=== PATIENT | female | born 1980 | race Caucasian/White ===

== ENCOUNTER 2025-02-03 07:39 | Day surgery (SDC) | payer OTHER ==
[~2025-02-03] VITALS: Ht 170.2 cm; Wt 91.1 kg
[~2025-02-03 07:39] MED LIST: ALBU8.5H; ATOG30TA PO; BUDE10.7; BUTACAP78 PO; SYNT50TA PO; TOPA50TA8 PO; VITA100093 PO
[2025-02-03] MEDS ORDERED: propofoL 200 MG/20 ML VIAL As Ordered ONE (09:28)
[2025-02-03] MEDS ORDERED: GLYCOPYRROLATE INJ 0.2 MG/ML 2 ML VIAL As Ordered ONE (09:36)
[2025-02-03] MEDS ORDERED: LIDOCAINE 2% 100MG/5ML SDV (FOR ANES.) As Ordered ONE (09:36)
[2025-02-03 09:57] VITALS: TEMP 97.2
[2025-02-03 10:22] VITALS: BP 107/67; O2SAT 100
== END 2025-02-03 10:23 | disposition home or self-care (01) ==
LOC: M OPP 07:39
PROVIDERS: ATTEND Internal Medicine Gastroenterology
DX: Z12.11 Encounter for screening for malignant neoplasm of colon (principal); D12.4 Benign neoplasm of descending colon; K64.8 Other hemorrhoids; R10.13 Epigastric pain; R19.7 Diarrhea, unspecified; R11.0 Nausea; Z88.1 Allergy status to other antibiotic agents; Z88.8 Allergy status to other drugs, medicaments and biological substances; Z79.51 Long term (current) use of inhaled steroids; Z79.899 Other long term (current) drug therapy; Z86.711 Personal history of pulmonary embolism
CPT/HCPCS: 43239; 45380; 45385; 88305; J1596